=== PATIENT | male | born 1965 | race Caucasian/White ===

== ENCOUNTER 2024-10-09 15:04 | Emergency (ER) | payer OTHER ==
[~2024-10-09] VITALS: Ht 165.1 cm; Wt 81.7 kg
== END 2024-10-09 16:25 | disposition home or self-care (01) ==
LOC: ER 15:04
DX: F11.20 Opioid dependence, uncomplicated (principal); Z76.0 Encounter for issue of repeat prescription
CPT/HCPCS: 99281; A9270